=== PATIENT | male | born 1970 | race African-American/Black ===

== ENCOUNTER 2023-09-15 11:26 | Outpatient (CLI) | payer BC, SELFPAY ==
--- NOTE | ~2023-09-15 | CT_ITS ---
CT scan of the Neck Technique: 2.5 mm axial scans were obtained through the neck after intravenous administration of 75 c c Omnipaque 350. Coronal and sagittal reconstructions of the neck were obtained. Dose reduction techn ique was used on this scan by utilizing automated exposure control and iterative reconstruction techn ique. The dose-length product (DLP) was 368.17 mGy-cm. Clinical History: Left parotid mass Findings: There is no evidence of any significant cervical lymphadenopathy. Several small, nonenlarged jugulo- digastric and posterior cervical lymph nodes are noted bilaterally. Parapharyngeal spaces appear norm al bilaterally. The submandibular glands appear normal. There is heterogeneous increased enhancement predominantly involving the superficial portion of the left parotid gland, with much more mild but si milar appearance in the superficial portion of the right parotid gland. The pharyngeal mucosal spaces appear normal. No soft tissue masses are seen in the neck. The thyroid gland appears normal. Images of the lung apices reveal no abnormalities. Impression: Heterogeneous increased enhancement in the superficial portion of the left parotid gland, with much m ore mild but similar findings in the right parotid gland. Infiltrative masses or confluent lymph node s are potential consideration. Consider pre and postcontrast MR to further evaluate. Reviewed, dictated and finalized at location M. Impression: Heterogeneous increased enhancement in the superficial portion of the left paro tid gland, with much more mild but similar findings in the right parotid gland. Infiltrative masses or confluent lymph nodes are potential consideration. Cons ider pre and postcontrast MR to further evaluate.
[2023-09-15 11:46] LABS: Estimated Glomerular Filt Rate > 60
== END 2023-09-15 11:27 ==
LOC: MICIMG 11:28
PROVIDERS: PCP Internal Medicine; Visit Provider Internal Medicine
DX: K11.8 Other diseases of salivary glands (principal)
CPT/HCPCS: 70491; Q9967

== ENCOUNTER 2023-09-25 10:39 | Outpatient (CLI) | payer BC, SELFPAY ==
--- NOTE | ~2023-09-25 | US_ITS ---
EXAMINATION: US soft tissue groin LT DATE: 09/25/2023 11:03 INDICATION: Pelvic and perineal pain. TECHNIQUE: Multiple grayscale and Doppler ultrasound images of the left groin were obtained. COMPARISON: None FINDINGS: There is a left inguinal hernia, likely containing fat. IMPRESSION: 1. Left inguinal hernia. Reviewed, dictated and finalized at location A. IMPRESSION: 1. Left inguinal hernia.
--- NOTE | ~2023-09-25 | XR_ITS ---
AP and lateral views of the left hip Clinical history: Pain Findings: No acute fracture or dislocation is seen. Osseous alignment is anatomic. Left hip joint is preserved. Soft tissues are unremarkable. Impression: No significant abnormality is seen. Reviewed, dictated and finalized at location . Impression: No significant abnormality is seen.
== END 2023-09-25 10:40 ==
LOC: MICIMG 10:40
PROVIDERS: PCP Internal Medicine; Visit Provider Internal Medicine
DX: K40.90 Unilateral inguinal hernia, without obstruction or gangrene, not specified as recurrent (principal)
CPT/HCPCS: 73502; 76882